=== PATIENT | female | born 1955 | race Caucasian/White ===

== ENCOUNTER 2024-09-29 05:51 | Day surgery (SDC) | payer MEDICARE, BC ==
[~2024-09-29 05:51] MED LIST: Propofol 200 MG/20 ML SDV ONE
[2024-09-29] MEDS ORDERED: Lactated Ringers 1,000 ML IV ONE (05:52)
[2024-09-29] MEDS ORDERED: Ketamine 500 mg/10 ML MDV IV ONE (05:52)
[2024-09-29] MEDS ORDERED: Propofol 200 MG/20 ML SDV IV ONE (05:52)
[2024-09-29] MEDS ORDERED: Dextrose 5%-0.45% NaCl 1,000 ML IV ONE (05:52)
[2024-09-29] MEDS ORDERED: fentaNYL 100 MCG/2 ML SDV IV ONE (05:52)
[2024-09-29] MEDS ORDERED: Dextrose 5%-0.45% NaCl 1,000 ML IV SCH (06:00)
[2024-09-29] MEDS: Lactated Ringers 1,000 ML IV SCH (06:40)
[2024-09-29] MEDS ORDERED: fentaNYL 100 MCG/2 ML SDV ONE (09:13)
== END 2024-09-29 09:00 | disposition home or self-care (01) ==
LOC: DL.ENDO 05:51
PROVIDERS: ATTEND Internal Medicine Gastroenterology
DX: Z12.11 Encounter for screening for malignant neoplasm of colon (principal)
CPT/HCPCS: G0121; J2704; J3010; J3490; J7120; 00812; 99100